=== PATIENT | female | born 2005 | race African-American/Black ===

== ENCOUNTER 2024-01-28 22:47 | Emergency (ER) | payer OTHER ==
[~2024-01-28] VITALS: Ht 165.1 cm; Wt 68.3 kg
[2024-01-29 02:01] VITALS: TEMP 97
[2024-01-29] MEDS ORDERED: HYDR1CRE30 TOP (06:43)
[2024-01-29] MEDS: predniSONE 20 MG TAB PO ONE (06:50)
[2024-01-29 06:53] VITALS: BP 129/65; O2SAT 99
== END 2024-01-29 06:54 | disposition home or self-care (01) ==
LOC: M ED 22:47
DX: R21 Rash and other nonspecific skin eruption (principal); Z79.52 Long term (current) use of systemic steroids
CPT/HCPCS: 99283; J7512

== ENCOUNTER 2024-02-16 13:57 | Emergency (ER) | payer OTHER ==
[~2024-02-16] VITALS: Ht 165.1 cm; Wt 69.3 kg
[2024-02-16 13:57] VITALS: BP 135/74; TEMP 97.3; O2SAT 100
[~2024-02-16 13:57] MED LIST: HYDR1CRE30 TOP
[2024-02-16] MEDS ORDERED: CLOB5CR TOP (15:01)
[2024-02-16] MEDS ORDERED: HYDR-3363 PO (15:01)
== END 2024-02-16 15:08 | disposition home or self-care (01) ==
LOC: M ED 13:57
DX: R21 Rash and other nonspecific skin eruption (principal); Z87.2 Personal history of diseases of the skin and subcutaneous tissue

== ENCOUNTER 2024-02-18 19:39 | Emergency (ER) | payer OTHER ==
[~2024-02-18 19:39] MED LIST changes: +CLOB5CR TOP; +HYDR-3363 PO
[2024-02-19] MEDS: LIDOCAINE W/EPINEPHRINE 1% 20ML VIAL SC ONE (02:35)
[2024-02-19] MEDS: POLYSPORIN TOPICAL OINTMENT 15GM TOP ONE (03:25)
[2024-02-19 03:41] VITALS: BP 136/79; TEMP 99; O2SAT 99
== END 2024-02-19 03:47 | disposition home or self-care (01) ==
LOC: M ED 19:39
DX: S30.850A Superficial foreign body of lower back and pelvis, initial encounter (principal); W45.8XXA Other foreign body or object entering through skin, initial encounter; Y92.9 Unspecified place or not applicable; Y93.9 Activity, unspecified; Y99.9 Unspecified external cause status

== ENCOUNTER 2024-07-13 17:27 | Emergency (ER) | payer OTHER ==
[~2024-07-13] VITALS: Ht 165.1 cm; Wt 73.7 kg
[2024-07-13 17:27] VITALS: O2SAT 98
[2024-07-13] MEDS: IBUPROFEN 800 MG TAB PO ONE (19:43)
[2024-07-13 20:05] LABS: BASO % 0.8 % (0.0-1.0); EOS # 0.1 10^3/uL (0.0-0.5); EOS % 1.1 % (0.0-3.0); HEMATOCRIT 36.9 % (36.0-47.0); HEMOGLOBIN 11.3 g/dl (12.0-15.5); LYMPH # 2.7 10^3/uL (1.5-5.0); LYMPH % 52.4 % (24.0-44.0); MEAN CORPUSCULAR HEMOGLOBIN 23.9 pg (27.0-33.0); MEAN CORPUSCULAR HGB CONC 30.6 g/dl (32.0-36.5); MEAN CORPUSCULAR VOLUME 78.2 fl (80.0-96.0); MONO # 0.4 10^3/uL (0.0-0.8); MONO % 6.9 % (2.0-8.0); NEUTROPHILS % 38.6 % (36.0-66.0); PLATELET COUNT, AUTOMATED 239 10^3/uL (150-450); RED BLOOD COUNT 4.72 10^6/uL (4.00-5.40); WHITE BLOOD COUNT 5.2 10^3/uL (4.0-10.0)
[2024-07-13 20:28] LABS: C REACTIVE PROTEIN QUANTITATIV < 0.40 MG/DL (<1.0); HCG, SERUM QUALITATIVE NEGATIVE (NEGATIVE)
[2024-07-13 20:29] LABS: BLOOD UREA NITROGEN 15 MG/DL (9-23); CALCIUM LEVEL 9.4 MG/DL (8.5-10.1); CARBON DIOXIDE LEVEL 28 MMOL/L (20-31); CHLORIDE LEVEL 107 MMOL/L (98-107); CREATININE FOR GFR 0.79 MG/DL (0.55-1.30); GLUCOSE, FASTING 87 MG/DL (60-100); POTASSIUM SERUM 4.4 MMOL/L (3.5-5.1); SODIUM LEVEL 138 MMOL/L (136-145)
[2024-07-13 20:31] LABS: ERYTHROCYTE SEDIMENTATION RATE 8 mm/hr (0-20)
[2024-07-13 21:25] VITALS: BP 142/81; TEMP 97.5
== END 2024-07-13 21:28 | disposition home or self-care (01) ==
LOC: M ED 17:27
DX: M79.621 Pain in right upper arm (principal); Z91.030 Bee allergy status; Z91.048 Other nonmedicinal substance allergy status

== ENCOUNTER 2024-11-05 08:01 | Emergency (ER) | payer OTHER ==
[~2024-11-05] VITALS: Ht 165.1 cm; Wt 81.0 kg
[2024-11-05 09:22] LABS: BASO % 0.6 % (0.0-1.0); EOS # 0.1 10^3/uL (0.0-0.5); EOS % 1.5 % (0.0-3.0); HEMATOCRIT 36.6 % (36.0-47.0); HEMOGLOBIN 11.4 g/dl (12.0-15.5); LYMPH # 2.3 10^3/uL (1.5-5.0); LYMPH % 48.5 % (24.0-44.0); MEAN CORPUSCULAR HEMOGLOBIN 24.3 pg (27.0-33.0); MEAN CORPUSCULAR HGB CONC 31.1 g/dl (32.0-36.5); MONO # 0.3 10^3/uL (0.0-0.8); MONO % 5.9 % (2.0-8.0); NEUTROPHILS # 2.1 10^3/uL (1.5-8.5); NEUTROPHILS % 43.3 % (36.0-66.0); PLATELET COUNT, AUTOMATED 211 10^3/uL (150-450); RED BLOOD COUNT 4.69 10^6/uL (4.00-5.40); WHITE BLOOD COUNT 4.7 10^3/uL (4.0-10.0)
[2024-11-05 09:29] LABS: BLOOD UREA NITROGEN 13 MG/DL (9-23); CALCIUM LEVEL 8.9 MG/DL (8.5-10.1); CARBON DIOXIDE LEVEL 26 MMOL/L (20-31); CHLORIDE LEVEL 106 MMOL/L (98-107); CREATININE FOR GFR 0.73 MG/DL (0.55-1.30); GLOMERULAR FILTRATION RATE > 60.0 (>60); GLUCOSE, FASTING 87 MG/DL (60-100); POTASSIUM SERUM 3.8 MMOL/L (3.5-5.1); SODIUM LEVEL 141 MMOL/L (136-145)
[2024-11-05 09:35] LABS: HCG, SERUM QUALITATIVE NEGATIVE (NEGATIVE)
[2024-11-05 10:55] LABS: LIPASE 27 U/L (12-53)
[2024-11-05 10:57] LABS: ALBUMIN 3.5 G/DL (3.2-5.2); ALKALINE PHOSPHATASE 59 U/L (35-104); ALT/SGPT 19 U/L (7.0-40); AST/SGOT 15 U/L (<34); BILIRUBIN,DIRECT 0.2 MG/DL (<0.4); BILIRUBIN,TOTAL 0.7 MG/DL (0.3-1.2)
[2024-11-05] MEDS: ONDANSETRON 4MG 2ML VIAL IV ONE (10:58)
[2024-11-05] MEDS: KETOROLAC 30 MG/ML 1ML VIAL IV ONE (10:59)
[2024-11-05 12:10] LABS: Trichomonas vaginalis (AMP) NOT DETECTED (NEGATIVE)
[2024-11-05 12:34] LABS: GC DNA AMPLIFICATION NEGATIVE (NEGATIVE)
[2024-11-05 12:35] VITALS: BP 115/65; TEMP 98.3; O2SAT 100
[2024-11-05] MEDS ORDERED: ONDA-282 PO (12:54)
[2024-11-05] MEDS ORDERED: MELO15TA28 PO (12:54)
== END 2024-11-05 13:02 | disposition home or self-care (01) ==
LOC: M ED 08:01
DX: M25.552 Pain in left hip (principal); R19.7 Diarrhea, unspecified; R11.2 Nausea with vomiting, unspecified; Z79.83 Long term (current) use of bisphosphonates; Z79.899 Other long term (current) drug therapy; Z91.048 Other nonmedicinal substance allergy status; Z91.030 Bee allergy status
CPT/HCPCS: 73502; 74021; 80048; 80076; 81001; 83690; 84703; 85025; 87661; 87810; 87850; 96374; 96375; 99284; J1885; J2405

== ENCOUNTER 2024-12-22 13:31 | Emergency (ER) | payer OTHER ==
[~2024-12-22] VITALS: Ht 165.1 cm; Wt 87.1 kg
[~2024-12-22 13:31] MED LIST changes: +MELO15TA28 PO; +ONDA-282 PO
[2024-12-22 13:34] VITALS: BP 144/74; TEMP 97.7; O2SAT 99
[2024-12-22] MEDS ORDERED: IBUP-1022 (13:40)
== END 2024-12-22 15:22 | disposition home or self-care (01) ==
LOC: M ED 13:31
DX: S76.012A Strain of muscle, fascia and tendon of left hip, initial encounter (principal); X50.0XXA Overexertion from strenuous movement or load, initial encounter; Z91.030 Bee allergy status; Z91.048 Other nonmedicinal substance allergy status; Y92.89 Other specified places as the place of occurrence of the external cause; Y93.89 Activity, other specified; Y99.1 Military activity; Z79.1 Long term (current) use of non-steroidal anti-inflammatories (NSAID)

== ENCOUNTER 2025-01-03 19:30 | Emergency (ER) | payer OTHER ==
[~2025-01-03] VITALS: Ht 165.1 cm; Wt 79.2 kg
[~2025-01-03 19:30] MED LIST changes: +IBUP-1022
[2025-01-03 20:40] LABS: BASO % 0.4 % (0.0-1.0); EOS % 0.4 % (0.0-3.0); HEMATOCRIT 38.8 % (36.0-47.0); HEMOGLOBIN 12.2 g/dl (12.0-15.5); LYMPH # 1.1 10^3/uL (1.5-5.0); LYMPH % 19.7 % (24.0-44.0); MEAN CORPUSCULAR HEMOGLOBIN 24.8 pg (27.0-33.0); MEAN CORPUSCULAR HGB CONC 31.4 g/dl (32.0-36.5); MEAN CORPUSCULAR VOLUME 78.9 fl (80.0-96.0); MONO # 0.2 10^3/uL (0.0-0.8); MONO % 4.3 % (2.0-8.0); NEUTROPHILS # 4.2 10^3/uL (1.5-8.5); NEUTROPHILS % 74.8 % (36.0-66.0); PLATELET COUNT, AUTOMATED 214 10^3/uL (150-450); RED BLOOD COUNT 4.92 10^6/uL (4.00-5.40); WHITE BLOOD COUNT 5.6 10^3/uL (4.0-10.0)
[2025-01-03 21:02] LABS: LIPASE 24 U/L (12-53)
[2025-01-03 21:05] LABS: ALKALINE PHOSPHATASE 67 U/L (35-104); ALT/SGPT 24 U/L (7.0-40); AST/SGOT 16 U/L (<34); BILIRUBIN,DIRECT 0.5 MG/DL (<0.4); BILIRUBIN,TOTAL 1.4 MG/DL (0.3-1.2); BLOOD UREA NITROGEN 13 MG/DL (9-23); CALCIUM LEVEL 9.2 MG/DL (8.5-10.1); CARBON DIOXIDE LEVEL 24 MMOL/L (20-31); CHLORIDE LEVEL 105 MMOL/L (98-107); CREATININE FOR GFR 0.68 MG/DL (0.55-1.30); GLOMERULAR FILTRATION RATE > 60.0 (>60); GLUCOSE, FASTING 91 MG/DL (60-100); POTASSIUM SERUM 3.6 MMOL/L (3.5-5.1); SODIUM LEVEL 139 MMOL/L (136-145); TOTAL PROTEIN 7.8 G/DL (5.7-8.2)
[2025-01-03 21:09] LABS: HCG, SERUM QUALITATIVE NEGATIVE (NEGATIVE)
[2025-01-03 22:07] LABS: KETONE, URINE AUTO RFX TRACE mg/dL (NEGATIVE); LEUKOCYTE ESTERASE UR AUTO RFX NEGATIVE (NEGATIVE); MUCUS, URINE RFX MODERATE (NEGATIVE); NITRITE, URINE AUTO RFX NEGATIVE (NEGATIVE); RBC, URINE AUTO RFX 0 /HPF (0-3); SQUAM EPITHELIAL CELL UR AURFX 2 /HPF (0-6); WBC, URINE AUTO RFX 0 /HPF (0-3)
[2025-01-03 23:25] VITALS: BP 152/81; TEMP 98.6; O2SAT 100
== END 2025-01-04 01:35 | disposition left against medical advice (07) ==
LOC: M ED 19:30
DX: Z53.21 Procedure and treatment not carried out due to patient leaving prior to being seen by health care provider (principal)

== ENCOUNTER 2025-03-18 19:42 | Emergency (ER) | payer OTHER ==
[~2025-03-18] VITALS: Ht 165.1 cm; Wt 81.6 kg
[2025-03-18 19:46] VITALS: BP 144/72; TEMP 101.1; O2SAT 98
[2025-03-18] MEDS ORDERED: [UNRECOGNIZED DRUG - OTHER] PO (19:51)
[2025-03-18] MEDS: IBUPROFEN 600MG TAB PO ONE (22:21)
[2025-03-18] MEDS ORDERED: PROA1AER2 INH (22:59)
[2025-03-18] MEDS ORDERED: PSEU30TA87 PO (22:59)
[2025-03-18] MEDS ORDERED: ACET-683 PO (22:59)
[2025-03-18] MEDS ORDERED: NAPR-885 PO (22:59)
[2025-03-18] MEDS ORDERED: DELS1LIQ3 PO (22:59)
[2025-03-18] MEDS ORDERED: NIRM1TAB14 PO (22:59)
== END 2025-03-19 00:45 | disposition home or self-care (01) ==
LOC: M ED 19:42
DX: U07.1 COVID-19 (principal); J06.9 Acute upper respiratory infection, unspecified; Z91.030 Bee allergy status; Z91.048 Other nonmedicinal substance allergy status; Z79.52 Long term (current) use of systemic steroids; Z79.1 Long term (current) use of non-steroidal anti-inflammatories (NSAID); Z79.899 Other long term (current) drug therapy